=== PATIENT | male | born 1965 | race Caucasian/White ===

== ENCOUNTER 2017-03-27 12:25 | Emergency (ER) | payer OTHER, MEDICARE ==
[~2017-03-27] VITALS: Ht 167.6 cm; Wt 61.5 kg
[~2017-03-27 12:25] MED LIST: Z.0.NO CURRENT MEDS
[2017-03-27 12:27] VITALS: BP 138/84; PULSE 81; RESP 18; TEMP 98.5; O2SAT 98
--- NOTE | 2017-03-27 12:53 | PD ---
HPI . Right index finger laceration Chief Complaint: Laceration/Skin Injury Time Seen by Provider: 12:53 Travel History International Travel<30 days: No Contact w/Intl Traveler<30days: No Traveled to known affect area: No History of Present Illness HPI 52-year-old male here with a right index finger laceration. Earlier today patient was working with a table saw when he accidentally cut the tip of his right index finger. Patient says that he didn't think it was too deep. It has slightly cut the nail bed, however there is no amputation or partial amputation. Patient tells me he is up-to-date on his tetanus shot and received that last year. He rates pain at the laceration site 03/27 without further radiation elsewhere. He is accompanied by on-site personnel from his job. This was a workers comp injury. [facility] Past Medical History Medical History: Denies Significant Hx Social History Alcohol Use: No Tobacco Use: No Substance Use: No Allergies-Medications (Allergen,Severity, Reaction): Coded Allergies: No Known Allergies (Unverified , 03/27/17) Reported Meds & Prescriptions Reported Meds & Active Scripts Active Bactrim DS (Sulfamethoxazole-Trimethoprim) 800-160 Mg Tab 1 Tab PO BID Review of Systems General / Constitutional: No: Fever Eyes: No: Visual changes HENT: No: Headaches Cardiovascular: No: Chest Pain or Discomfort Respiratory: No: Shortness of Breath Gastrointestinal: No: Abdominal Pain Genitourinary: No: Dysuria Musculoskeletal: No: Pain Skin: Positive Other (right index finger laceration ), No Rash Neurologic: No: Weakness Psychiatric: No: Depression Endocrine: No: Polydipsia Hematologic/Lymphatic: No: Easy Bruising Physical Exam Narrative GENERAL: AAO x 3, no acute distress, Well-nourished, well-developed patient. SKIN: Warm and dry. No visible rashes or bruising. small 1.4 cm laceration to the tip of the right index index finger, superficial with jagged edges, slight removal of nail, but cut does not extend into the nailbed. the laceration does not extend into fat pad. There is no bone, vessel or nerve injury. HEAD: Normocephalic and atraumatic. EYES: No scleral icterus. No injection or drainage. EOM intact, PERRLA ENT: No nasal drainage noted. Mucous membranes pink. Airway patent. NECK: Supple, trachea midline. No JVD. CARDIOVASCULAR: Regular rate and rhythm without murmurs, gallops, or rubs. RESPIRATORY: Breath sounds equal bilaterally. No accessory muscle use. No rhonchi or rales. GASTROINTESTINAL: visual inspection saran. EXTREMITIES: No cyanosis or edema. laceration to the right index finger, all digits move freely. BACK: No obvious deformity. NEURO: CN II-12 intact, air bag curer strength normal b/l, UE and LE 5/5, no focal deficits PSYCH: AAO x 3, normal affect. Data Data Last Documented VS Vital Signs Date Time Temp Pulse Resp B/P Pulse Ox O2 Delivery O2 Flow Rate FiO2 03/27/17 12:27 98.5 81 18 138/84 98 Room Air Orders Finger (Aow7csa) (03/27/17 12:56) Lidocaine 1% Inj (50 Ml) (Xylocaine 1% I (03/27/17 13:00) Support Splint (03/27/17 14:45) MDM Medical Decision Making Medical Screen Exam Complete: Yes Emergency Medical Condition: Yes Medical Record Reviewed: Yes Differential Diagnosis finger laceration, less likely distal tuft fracture, possible fb to laceration Narrative Course 52-year-old male here with a right index finger laceration. Patient sustained this injury while working with a table saw. Although this is very superficial cut, does have some jagged edges. On the nail bed there is a partial tear in the nail, however there is no tear through the nail bed. It is possible that the tip of the nail was snagged on the table saw and was partially removed, however most of the nail remains in place and intact. He will need repair to this area. He has given verbal consent. I will check an x-ray to rule out foreign body as well as distal tuft fracture, which I do not suspect. He is up-to-date on his tetanus shot. Last Impressions Finger X-Ray 03/27/17 1256 Signed Impressions: Service Date/Time: March 13:13 - CONCLUSION: Significant soft tissue injury with tuft avulsion of the distal phalanx of the right second digit. MD Nora Marquez, PAS2 performed laceration repair, while I supervised. Xray read as distal tuft fracture. However, I reviewed and Dr. Parsons reviewed and we both cannot visualize this fracture as there is no remaining bone fragment. This wound was very superficial and did not even extend past the fat pad. If there is a fracture. It was more than likely caused by the vibrations of the saw. After repair. Splint was applied for support and protection. I've recommended a consult with hand surgeon. I explained this to the patient, his employer and parents who are at bedside. The entire family verbalized understanding of instructions. Procedures Procedure Narrative LACERATION LOCATION: right index LENGTH: 1.4 NUMBER OF STITCHES/DIONTE:6 52- year old male with laceration to right index finger from table saw. Patient received a digital block to finger with 1% lidocaine, was then cleaned with a combination of betadine and normal saline. Finger was then draped sterilely and 6 stitches were placed using 4-0 Ethilon. Patient tolerated procedure well and had good capillary refill after procedure, as well as able to move digit freely. Patient's finger was then cleaned and wrapped with cling, finger splint was then placed. Diagnosis Primary Impression: Laceration of right index finger Qualified Code: S61.310A - Laceration of right index finger without foreign body with damage to nail, initial encounter Additional Impression: Closed fracture of tuft of distal phalanx of finger Referrals: Hand Surgeon Patient Instructions: General Instructions Departure Forms: Tests/Procedures, Work Release Enter return to work date: Mar 27, 2017 Special Instructions: limit usage of right index finger for the next week. We do not want to interrupt the sutures. Additional Instructions: Keep area clean and dry. Use neosporin to the wound for the next 2-3 days. After that leave open to air. Use gauze as we discussed and change 1-2 times a day. Watch for signs of infection: fever, redness, swelling, warmth, pus or drainage , red streaks around the cut, and increased pain from the area. If you received a tetanus shot, you may experience tenderness at the injection site. This is normal. Please return to emergency department if your symptoms return or worsen. Follow up with your primary care provider. Take medications as prescribed. These 6 sutures will need to be removed in 7-10 days. He could can go to his primary care office or return to the emergency department to have these removed. Ray will need to see a hand surgeon within the next week. Please make appropriate arrangements through worker's comp. He can also follow up with his primary care provider. Med/Other Pt SpecificInfo: Prescription(s) given Scripts Sulfamethoxazole-Trimethoprim (Bactrim DS)800-160 Mg Tab1 Tab PO BID #20 TAB Prov:Apple Parsons MD 03/27/17 Disposition: 01 DISCHARGE HOME Condition: Stable Chiara Etienne Mar 27, 2017 12:53
[2017-03-27] MEDS ORDERED: LIDOCAINE HCL 1% 50 ML VIAL INFIL ONE (13:00)
--- NOTE | 2017-03-27 13:55 | RADRPT ---
EXAM DATE/TIME: 03/27/2017 13:13 [facility] COMPARISON: No previous studies available for comparison. INDICATIONS : Laceration distal 2nd digit right hand, cut with table saw MEDICAL HISTORY : None. SURGICAL HISTORY : None. ENCOUNTER: Initial ACUITY: 1 day PAIN SCORE: 2/10 LOCATION: Right Hand FINDINGS: Examination of the second digit of the right hand demonstrates significant soft tissue injury with av ulsion of the distal tuft. There is otherwise intact. CONCLUSION: Significant soft tissue injury with tuft avulsion of the distal phalanx of the right second digit. Ceferino oCates MD on March 27, 2017 at 13:52 Board Certified Radiologist. This report was verified electronically.
[2017-03-27] MEDS ORDERED: BACT800T5 PO (14:05)
== END 2017-03-27 15:26 | disposition home or self-care (01) ==
LOC: NEPK 12:25
DX: S61.310A Laceration without foreign body of right index finger with damage to nail, initial encounter (principal); S62.630A Displaced fracture of distal phalanx of right index finger, initial encounter for closed fracture; W29.8XXA Contact with other powered hand tools and household machinery, initial encounter; Y99.0 Civilian activity done for income or pay
CPT/HCPCS: 12001; 73140